=== PATIENT | male | born 1970 | race Caucasian/White ===

== ENCOUNTER 2017-03-25 09:39 | Emergency (ER) | payer OTHER ==
[~2017-03-25] VITALS: Ht 172.7 cm; Wt 95.5 kg
[2017-03-25] MEDS ORDERED: OLAN5TAB2 PO (09:47)
[2017-03-25] MEDS ORDERED: GABA-529 PO (09:47)
[2017-03-25] MEDS ORDERED: LIB10 PO (09:47)
[2017-03-25 10:46] LABS: BASOPHILS % (AUTO) 0.4 % (0.0-2.0); EOSINOPHILS % (AUTO) 2.5 % (1.0-6.0); HEMOGLOBIN 12.9 g/dL (13.5-17.5); LYMPHOCYTES # (AUTO) 0.8 K/uL (1.0-4.8); LYMPHOCYTES % (AUTO) 16.9 % (22.0-44.0); MEAN CORPUSCULAR HEMOGLOBIN 31.5 pg (26.0-34.0); MEAN CORPUSCULAR HGB CONC 34.8 G/dL (31.0-37.0); MEAN CORPUSCULAR VOLUME 91 fL (80-100); MONOCYTES # (AUTO) 0.3 K/uL (0.1-1.0); MONOCYTES % (AUTO) 7.1 % (2.0-9.0); NEUTROPHILS # (AUTO) 3.5 K/uL (1.8-7.7); NEUTROPHILS % (AUTO) 73.1 % (40.0-70.0); PLATELET COUNT (AUTO) 132 K/uL (150-450); RED BLOOD CELL COUNT(AUTO) 4.09 MIL/uL (4.50-5.90); RED CELL DISTRIBUTION WIDTH 13.6 % (11.5-14.5); WHITE BLOOD COUNT (AUTO) 4.7 K/uL (4.5-11.0)
[2017-03-25 10:54] LABS: ANION GAP 9 mmol/L (8-16); CALCIUM, TOTAL 9.4 mg/dL (8.8-10.5); CARBON DIOXIDE 28 mmol/L (22-29); CHLORIDE 106 mmol/L (98-107); GLOMERULAR FILTR. RATE CALC > 60 mL/min (>60); POTASSIUM 3.8 mmol/L (3.5-5.1); SODIUM SERUM 143 mmol/L (136-145); UREA NITROGEN, BLOOD 12 mg/dL (7-18)
[2017-03-25 11:01] LABS: ALANINE AMINOTRANSFERASE 148 U/L (12-78); ALBUMIN 3.6 g/dL (3.4-5.0); ASPARTATE AMINOTRANSFERASE 151 U/L (15-37); BILIRUBIN,TOTAL 0.5 mg/dL (0.1-1.0); TOTAL PROTEIN, SERUM 6.8 g/dL (6.4-8.2)
[2017-03-25] MEDS ORDERED: IBUPROFEN 600 MG TABLET PO ONE (12:00)
[2017-03-25] MEDS ORDERED: HALOPERIDOL 5 MG TABLET PO ONE (12:00)
[2017-03-25] MEDS ORDERED: LORazepam 1 MG TABLET PO ONE (12:00)
[2017-03-25] MEDS ORDERED: OLANZapine 5 MG TABLET PO ONE (14:00)
[2017-03-25] MEDS ORDERED: TraMADol HCL 50 MG TABLET PO ONE (14:00)
[2017-03-25 14:17] VITALS: BP 141/78
== END 2017-03-25 14:20 | disposition home or self-care (01) ==
LOC: EMS 09:43
DX: F31.9 Bipolar disorder, unspecified (principal); F10.10 Alcohol abuse, uncomplicated; G89.29 Other chronic pain; M54.9 Dorsalgia, unspecified; M25.562 Pain in left knee; M25.561 Pain in right knee; F17.210 Nicotine dependence, cigarettes, uncomplicated
CPT/HCPCS: 36415; 80053; 80307; 85025; 99284; 99406; G0480